=== PATIENT | male | born 1970 | race Caucasian/White ===

== ENCOUNTER 2023-10-18 18:48 | Emergency (ER) | payer SELFPAY ==
[2023-10-18 19:00] VITALS: BP 153/106; PULSE 78; O2SAT 97
[2023-10-18 19:04] VITALS: BP 143/99; PULSE 75; RESP 16; TEMP 36.4; O2SAT 96; BMI 25.0
--- NOTE | 2023-10-18 19:07 | CT_ITS ---
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 Radiation optimization: All CT scans at this facility use at least one of these dose optimization techniques: automated exposure control; mA and/or kV adjustment per patient size (includes targeted exams where dose is matched to clinical indication); or iterative reconstruction. COMPARISON: CT HEAD/BRAIN WO CON 10/18/2023 7:14 PM FINDINGS: Bones: No cervical spine fracture or listhesis. Mild multilevel degenerative disc disease and facet arthropathy. Lungs: Lung apices are normal. Thyroid: 1.7 cm low-density right thyroid nodule. Soft tissues: Unremarkable. IMPRESSION: 1. No cervical spine fracture or listhesis. 2. 1.7 cm low-density right thyroid nodule. Recommend follow-up nonemergent thyroid ultrasound. COMMENTS: Consistent with the [employer]'s Incidental Findings Committee white paper (J Am So Radiol 2015): In patients aged 35 years and older with an incidental thyroid nodule equal to or greater than 1.[address], MRI or extrathyroidal US, further evaluation with dedicated thyroid US is recommended for patients with normal life expectancy and without comorbidities. For smaller nodules without suspicious features, no further evaluation or follow up is recommended.
--- NOTE | 2023-10-18 19:07 | CT_ITS ---
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 Radiation optimization: All CT scans at this facility use at least one of these dose optimization techniques: automated exposure control; mA and/or kV adjustment per patient size (includes targeted exams where dose is matched to clinical indication); or iterative reconstruction. COMPARISON: CT CERVICAL SPINE WO CON 10/18/2023 7:14 PM FINDINGS: Brain: Normal. No hemorrhage. Unremarkable white matter. No mass effect. Cerebral ventricles: No ventriculomegaly. Paranasal sinuses: Visualized sinuses are unremarkable. No fluid levels. Mastoid air cells: Visualized mastoid air cells are well aerated. Bones: Unremarkable. No acute fracture. Soft tissues: Unremarkable. IMPRESSION: No acute intracranial abnormality.
--- NOTE | 2023-10-18 19:11 | HMH.EDGENADL ---
Discharge Plan Disposition Patient Disposition: Left Against Medical Advice Referrals Follow up/Referrals: Michel Domingo MD [Primary Care Provider] - See instructions Activity Restrictions/Add. Instructions Additional Instructions/Restrictions: [facility] will call you tomorrow for close outpatient follow-up. Please keep your cervical spine collar on at all times. As a reminder we were unable to get you transferred to get an emergency MRI due to your unwillingness to be transferred we cannot rule out a spinal hematoma or herniated disc that would require emergent surgical decompression. Please return with any worsening of your symptoms. Clinical Impressions Clinical Impression: Central cord syndrome, Hyperextension injury of neck, Weakness of both hands, Paresthesias Instructions Patient Instructions: DI for Neck Pain Discharge ED Provider: [facility] HPI General Chief complaint: Neck Pain/Injury Stated complaint: AO 10/18/23 1600 injury head,neck Time Seen by Provider: 10/18/23 18:58 Mode of Arrival: Ambulatory Source of Information: Patient Limitations: No Limitations Description of Symptoms (Recalled from ER Triage Doc. by RN): pt reports around 1600 an approximately 250lb milton reared up and fell on the pt. pt states he was already on the ground when the body of the milton came down on his face. pt states it pushed his neck back. pt describes that it hyperextended his neck and some to the R. 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 pt also reports tingling in his feet bilaterally. History of Present Illness HPI narrative: Patient is a 53-year-old male presents today with neck pain and neurologic complaints in his bilateral upper and lower extremities. 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 States that he was working with a horse at 250 pound occult when it reared up and knocked him to the ground and fell directly onto his head. States that he had an impact from the left side causing a hyperextension injury to the posterior right side. States he has pain in the upper cervical spine and the frontal aspect of his forehead. This happened around 3 hours ago. His family had to convince him to come to the hospital. He denies any chest pain back pain abdominal pain or other long bone pain. Not on any anticoagulants has no other past medical conditions or diagnoses. Related Data Allergies Allergy/AdvReac Type Severity Reaction Status Date / Time No Known Allergies Allergy Verified 10/18/23 19:11 [facility] Disclaimer: The information contained in this section may have been updated after the patient was seen, as this information can be updated by other users. Social History Smoking Status: Never smoker alcohol intake: never current occupational status: other Travel in the last 8 weeks: None ROS Obtained: Yes All systems reviewed & no additional complaints except as documented Physical Exam General General appearance: alert Head Head exam: atraumatic, normocephalic and normal inspection Neck Neck exam: Present tenderness (There is tenderness at the base of the skull at the upper cervical spine mainly off to the paraspinal muscular side of the left.) Respiratory Respiratory exam: Present normal lung sounds bilaterally Cardiovascular Cardiovascular exam: Present regular rate Neurological Exam Neurological exam: Present other (Patient currently has 5 out of 5 strength with p 3 armament/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 technician and with median ulnar radial and axillary nerve distribution he has subjective weakness but no objective weakness) Medical Decision Making Richard Inquiry Pt receiving controlled substance: No Vital Signs: 10/18/23 19:00 10/18/23 19:04 10/18/23 19:30 Temperature 97.6 F Temperature Source Oral Pulse Rate 78 72 Pulse Rate [Left] 75 Respiratory Rate 16 Blood Pressure 153/106 H 141/87 H Blood Pressure [Right Arm] 143/99 H Blood Pressure Mean 105 Blood Pressure Mean [Right Arm] 113 Blood Pressure Source [Right Arm] Automatic Cuff Blood Pressure Position [Right Arm] Sitting 02 Sat by Pulse Oximetry 97 96 96 Oxygen Delivery Method Room Air Room Air Orders (Tests/Meds): ORDERS Category Date Time Status CT cervical spine wo con Stat Cat Scan 10/18/23 19:[address] head/brain wo con Stat Cat Scan 10/18/23 19:07 Completed Medical Decision Narrative: 53-year-old very stoic Ernesto gentleman presents today after an injury with a hyperextension injury to his neck with 4 extremity paresthesias as well as subjective complaints of bilateral upper extremity weakness highly concerning for possible central cord injury. He has no chest abdomen pelvis or other long bone pain or abnormalities. Will get a CT scan of his head and cervical spine and reassess. I told him he most likely will need an MRI and possibly evaluation by neurosurgeon will reassess shortly. He has denied any pain medication. He is very hesitant to get an IV and did not want any other interventions done at the moment. Reassessment 836 I have been in the patient's room numerous times after the CT scans returned and I first interpreted and also to radiology read which shows no acute abnormalities. Patient still complains of upper extremity weakness but states it may be improving little bit. Most likely still central cord syndrome. Cannot rule out spinal epidural hematoma or traumatic herniated disc that may require surgical decompression. I discussed the case with Dr. Barry and Dr. Hernandezu [facility] and they recommended given the fact that patient is refusing transfer to admit the patient to [facility] to get an MRI here and then have them call neurosurgery in the morning to review imaging. Spoke with Dr. Winter who is on-call for Dr. Domingo and he refused to admit the patient to [facility] tell me the patient could either leave AMA or be transferred. I subsequently spoke to the patient again and he still does not want to be transferred we will call [facility] back they took the patient's information will try to get him into neurosurgery clinic soon as possible. The patient will wear his cervical collar at all times and return with any worsening neurologic complaints. He is aware of the fact that he could have disability and if this were to progress and did sign out AMA. Critical Care Critical Care Time Critical Care Time: Yes Attestation: On 10/18/23, the high probability of a clinically significant, sudden or life threatening deterioration of the following system(s) required my full and direct attention, intervention and personal management. The time I documented below is in addition to time spent performing reported procedures but includes the following listed in this critical care notation. Total Time Total Critical Care Time: 35
[2023-10-18 19:30] VITALS: BP 141/87; PULSE 72; O2SAT 96
--- NOTE | 2023-10-18 19:50 | PC.NURSE ---
Spoke to Alina in Radiology about transferring images to [facility]
--- NOTE | 2023-10-18 19:53 | PC.NURSE ---
[facility]: central cord syndrome. speaking with Dr Barry.
--- NOTE | 2023-10-18 20:02 | PC.NURSE ---
paged dr dorado
--- NOTE | 2023-10-18 20:04 | PC.NURSE ---
dr dorado returned call.
--- NOTE | 2023-10-18 20:07 | PC.NURSE ---
dr dorado states he will not admit this patient.
--- NOTE | 2023-10-18 20:17 | PC.NURSE ---
Spoke with transfer center in regards to patients wishes of not being transferred and following up with outpatient neuro. Transfer center advised they would relay the info to Dr. Gonzalez
--- NOTE | 2023-10-18 20:21 | PC.NURSE ---
Spoke with [facility] regarding neuro clinic scheduling. Provided requested address and phone number from chart. Confirmed with patient that was a valid number, patient also gave number [phone] for contact as well. [facility] reports they will call patient tomorrow.
[2023-10-18 20:48] VITALS: BP 151/89; PULSE 79; RESP 18; TEMP 36.4; O2SAT 93
== END 2023-10-18 20:52 | disposition left against medical advice (07) ==
PROVIDERS: Emergency Provider Student in an Organized Health Care Education/Training Program; PCP Family Medicine
DX: S14.129A Central cord syndrome at unspecified level of cervical spinal cord, initial encounter (principal); S19.80XA Other specified injuries of unspecified part of neck, initial encounter; R29.898 Other symptoms and signs involving the musculoskeletal system; R20.2 Paresthesia of skin; W55.19XA Other contact with horse, initial encounter
CPT/HCPCS: 70450; 72125; 99291